=== PATIENT | female | born 1940 | race Caucasian/White ===

== ENCOUNTER → 2016-09-19 | Outpatient (CLI) | payer MEDICARE, OTHER ==
[~2016-09-19] MED LIST: AMBI5TAB PO; ASPI81TA82 PO; ATOR10 PO; FISH1000 PO; LEVO50TA51 PO; OXYC-360 PO; SILV1CRE59 TOP
[2016-09-19 13:42] LABS: RHEUMATOID FACTOR TRIGGER LESS THAN 10.0 IU/ML (0.0-14.9)
[2016-09-19 13:48] LABS: ALKALINE PHOSPHATASE 113 U/L (45-117); ALT (GPT) 33 U/L (10-53); ANION GAP 10 MEQ/L (5-15); AST (GOT) 31 U/L (15-37); BICARBONATE 27.5 MEQ/L (21.0-32.0); BLOOD UREA NITROGEN 8 MG/DL (7-18); CHLORIDE 104 MEQ/L (98-107); FERRITIN 151 NG/ML (8-252); FREE T4 1.32 NG/DL (0.76-1.46); GLOMERULAR FILTRATION RATE 132 ML/MIN (>89); GLUCOSE,FASTING 86 MG/DL (74-99); MAGNESIUM 1.5 MG/DL (1.5-2.5); POTASSIUM 3.7 MEQ/L (3.5-5.1); SODIUM (NA) 141 MEQ/L (136-145); TOTAL BILIRUBIN ADULT 0.6 MG/DL (0.2-1.0)
[2016-09-25 12:30] LABS: HEREDITARY HEMOCHROM SPECIMEN WB Whole Blood (())
== END ==
LOC: PLAB 09:33
PROVIDERS: ATTEND Family Medicine
DX: R74.8 Abnormal levels of other serum enzymes (principal); E87.6 Hypokalemia; E83.119 Hemochromatosis, unspecified; M06.9 Rheumatoid arthritis, unspecified; E03.9 Hypothyroidism, unspecified; M79.89 Other specified soft tissue disorders
CPT/HCPCS: 36415; 80053; 81256; 82728; 83735; 84439; 84443; 86430